=== PATIENT | male | born 1935 | race American Indian/Alaskan Native ===

== ENCOUNTER 2019-01-18 09:35 | Day surgery (SDC) | payer OTHER ==
[~2019-01-18 09:35] MED LIST: SODIUM CHLORIDE 0.9% 1000 ML 1,000 ML IV SCH
[2019-01-18] MEDS ORDERED: LIDOCAINE MPF (2%) 20 MG/1 ML VIAL 5 ML ONE (10:00)
[2019-01-18] MEDS ORDERED: PROPOFOL 200 MG/20 ML VIAL IV ONE ×2 (12:32)
--- NOTE | 2019-01-18 12:32 | Anesthesia Consultation ---
Anesthesia Consult and Med Hx Date of service: 01/18/19 - Airway Anesthetic Teeth Evaluation: Good ROM Head & Neck: Adequate Mental/Hyoid Distance: Inadequate Mallampati Class: Class III Intubation Access Assessment: Probably Good - Pulmonary Exam CTA: Yes - Cardiac Exam Cardiac Exam: RRR - Pre-Operative Health Status ASA Pre-Surgery Classification: ASA3 Proposed Anesthetic Plan: MAC - Pulmonary Hx Smoking: No Hx Respiratory Symptoms: No Hx Sleep Apnea: No - Cardiovascular System Hx Hypertension: Yes - Gastrointestinal Hx Gastroesophageal Reflux Disease: No - Endocrine Hx Renal Disease: No Hx Non-Insulin Dependent Diabetes: Yes - Other Systems Hx Alcohol Use: No Hx Substance Use: No Hx Obesity: Yes - Additional Comments Anesthesia Medical History Comments: Denied previous anesthesia complications.
--- NOTE | 2019-01-18 12:33 | Anesthesia Day of Surgery ---
Anesthesia Day of Surgery - Day of Surgery Patient Examined: Yes Patient H&P Reviewed: Yes Patient is NPO: Yes
--- NOTE | 2019-01-18 13:10 | Procedure Note ---
Date of procedure: 01/18/19 Pre-op diagnosis: GERD/Colon Polyps Screening/F/H/O Cancer (sister) Post-op diagnosis: other (Mild to Moderate Erosive Esophagitis/Gastritis/No Colon Polyps noted/Moderate Left Colon diverticuli/Mild to Moderate Internal Hemorrhoids/Possible,Proximal Colon Surgery (as noted endoscopically)) Procedure: EGD with Biopsy/Colonoscopy [place] [facility] [place]: DONNA SEARS Estimated blood loss: minimal Pathology: list Specimen disposition: to lab Condition: stable Disposition: same day (Treat with PPI, encourage fiber intake; avoid aspirin and NSAID for 4 days otherwise resume home medication. Follow up in 1 to 2 weeks ([phone]).)
--- NOTE | 2019-01-18 13:16 | Operative Report ---
PROCEDURE: Esophagogastroduodenoscopy with biopsy. INDICATIONS: An 83-year-old -[place] male with an underlying history of hypertension, diabetes and GERD symptoms. EGD was done to evaluate for any significant upper GI pathology. DESCRIPTION OF PROCEDURE: The procedure was done after getting informed consent with MAC anesthesia. Instrument was passed through the hypopharynx into the esophagus, which showed mild to moderate distal erosive esophagitis. Biopsy was done from the distal esophagus. Stomach showed gastritis. Biopsy was done from the gastric antrum, gastric body and angular incisura to rule out for H. pylori and atrophic gastritis. The pylorus is patent. The duodenum in the first and second portion appeared normal. There was no peptic ulcer disease noted. There was minimal bleeding associated with the procedure. No complications associated with the procedure. ASSESSMENT: Gastroesophageal reflux disease symptoms, mild to moderate distal erosive esophagitis, gastritis, patent pylorus. No peptic ulcer disease noted. PLAN: Treat the patient with PPI and to do a colonoscopy as part of colon polyp screening. The patient does have a family history of cancer, the patient's sister had cancer. The patient will be asked to follow up in the office in 1-2 weeks' time. The procedure was done in the GI lab with assistance of the GI lab team, which included Viry CARMICHAEL including odell Powers and the assistance of Anesthesia. JOB# [id number] MAGGIE/CHRISTIAN
--- NOTE | 2019-01-18 13:21 | Operative Report ---
PROCEDURE: Colonoscopy. INDICATIONS: This is an 83-year-old -[place] gentleman who has a family history of cancer. The patient's sister had cancer. EGD done prior to the colonoscopy because of GERD symptoms that shown mild to moderate erosive esophagitis and gastritis, for which the patient is to be treated with PPI. DESCRIPTION OF PROCEDURE: Colonoscopy was done after getting informed consent. Initial rectal exam was unremarkable. Instrument was passed through the rectum onto the cecum or proximal colon. It appeared that the patient may have had some surgical changes in the proximal colon. Photodocumentation was obtained. Cecum, ascending colon or the proximal colon, the transverse colon showed normal mucosa. Moderate diverticular disease was noted in the left colon and rectum showed minor internal hemorrhoid on the retroverted view. No colon polyps were noted. Mild to moderate internal hemorrhoids were noted. There was minimal bleeding associated with the colonoscopy, no complications associated with the procedure. ASSESSMENT: Family history of cancer, the patient's sister had cancer. No colon polyps noted. Left colon diverticular disease, possible proximal colon surgery and [id number] internal hemorrhoid. PLAN: To encourage the patient to take fiber supplements, treat the patient with PPI, have the patient follow up in the office in 1-2 weeks' time. The procedure was done in the GI lab with assistance of the GI lab team, which included RN, Priya Her and with the assistance of anesthesia. JOB# [id number] MAGGIE/CHRISTIAN
[2019-01-18 13:51] VITALS: BP 130/76
--- NOTE | 2019-01-18 18:00 | Post Anesthesia Evaluation ---
- Post Anesthesia Evaluation Patient Participated: Yes Airway Patent: Yes Stable Respiratory Function: Yes Nausea/Vomiting: No Temp > 96.8F: Yes Pain Manageable: Yes Adequeate Hydration: Yes Anesthesia Complications: No Block Receding Appropriately: Not Applicable Patient on Ventilator: No
== END 2019-01-18 14:20 | disposition home or self-care (01) ==
LOC: GIO 09:35
DX: Z12.11 Encounter for screening for malignant neoplasm of colon (principal); K57.30 Diverticulosis of large intestine without perforation or abscess without bleeding; K64.8 Other hemorrhoids; K29.50 Unspecified chronic gastritis without bleeding; K21.0 Gastro-esophageal reflux disease with esophagitis; E11.9 Type 2 diabetes mellitus without complications; I10 Essential (primary) hypertension; E66.9 Obesity, unspecified; Z68.37 Body mass index [BMI] 37.0-37.9, adult; Z80.0 Family history of malignant neoplasm of digestive organs
CPT/HCPCS: 43239; 45378; 82962; 88305; 88342; J2704; J7030